=== PATIENT | female | born 1950 ===

== ENCOUNTER 2017-09-26 13:50 | Inpatient (IN) | payer MEDICARE ==
[2017-09-26 13:56] VITALS: BMI 21.7
--- NOTE | 2017-09-26 14:31 | ED PDOC ---
HPI: Psych/Substance Abuse Time Seen by Provider: 09/26/17 14:10 Chief Complaint (Nursing): Psychiatric Evaluation Chief Complaint (Provider): Psychiatric Evaluation History Per: Patient, Family (daughter) History/Exam Limitations: no limitations Current Symptoms Are (Timing): Still Present Additional Complaint(s): 67 year old female, with no history of psychiatric illness, presents to the emergency department via EMS with daughter who states the patient has been demonstrating hoarding for two years and has developed an excessive obsession with her skin. Patient states she saw a pastry wrapper for the sensation of " bugs in her skin," and has since shaved off her eyebrows to help with this. She is worried about having multiple sclerosis, and notes pain in her hands. As per her daughter, patient recently made a declaration of suicidal ideation after a strenuous day last week, but patient claims now that she does not feel that way and has never made any attempts on her life. PMD: Ron Past Medical History Reviewed: Historical Data, Nursing Documentation, Vital Signs Vital Signs: Last Vital Signs Temp 99 F 09/26/17 13:55 Pulse 84 09/26/17 13:55 Resp 16 09/26/17 13:55 BP 145/83 09/26/17 13:55 Pulse Ox 99 09/26/17 13:55 - Medical History PMH: No Chronic Diseases - Surgical History Surgical History: No Surg Hx - Family History Family History: States: Unknown Family Hx - Social History Current smoker - smoking cessation education provided: No Alcohol: None Drugs: Denies - Home Medications Home Medications: Ambulatory Orders Medication Instructions Recorded No Known Home Med 09/26/17 - Allergies Allergies/Adverse Reactions: Allergies Allergy/AdvReac Type Severity Reaction Status Date / Time seasonal Allergy ITCHING Uncoded 09/26/17 14:03 Review of Systems ROS Statement: Except As Marked, All Systems Reviewed And Found Negative Musculoskeletal: Positive for: Hand Pain (bilteral) Skin: Positive for: Other (sensation of bugs in skin, itchy) Psych: Positive for: Suicidal ideation (made last week, but currently denies) Physical Exam - Reviewed Nursing Documentation Reviewed: Yes Vital Signs Reviewed: Yes - Physical Exam Appears: Positive for: Non-toxic, No Acute Distress Head Exam: Positive for: ATRAUMATIC, NORMOCEPHALIC Skin: Positive for: Rash (multiple small lesions along face; eczema to exterior popiteal fossa bilaterally) Eye Exam: Positive for: Normal appearance, EOMI, PERRL ENT: Positive for: Normal ENT Inspection Neck: Positive for: Normal, Painless ROM, Supple Cardiovascular/Chest: Positive for: Regular Rate, Rhythm. Negative for: Murmur Respiratory: Positive for: Normal Breath Sounds. Negative for: Accessory Muscle Use, Respiratory Distress Gastrointestinal/Abdominal: Positive for: Normal Exam, Soft. Negative for: Tenderness Back: Positive for: Normal Inspection Extremity: Positive for: Normal ROM Neurologic/Psych: Positive for: Alert, Oriented - Laboratory Results Result Diagrams: 09/26/17 14:30 09/26/17 14:30 - ECG ECG Rhythm: Positive for: Sinus Rhythm (nsr 70 bpm no ectopy no acute changes) O2 Sat by Pulse Oximetry: 99 (RA) Pulse Ox Interpretation: Normal - Progress ED Course And Treament: seen by crisis Admitted to [facility] Diagnosis depression Medical Decision Making Medical Decision Making: Time: 14:12 Initial Impression: psych eval Initial Plan: --CT Head --EKG --Alcohol Serum --CMP --Drug Screen --TSH --CBC with differential --Chest Portable XR --Urinalysis Time:14:48 Chest XR FINDINGS: LUNGS: No active pulmonary disease. PLEURA: No significant pleural effusion identified, no pneumothorax apparent. CARDIOVASCULAR: Normal. OSSEOUS STRUCTURES: Degenerative changes. VISUALIZED UPPER ABDOMEN: Normal. OTHER FINDINGS: None. IMPRESSION: No active disease. Time: 17:[address] FINDINGS: HEMORRHAGE: No intracranial hemorrhage. BRAIN: No mass effect or edema. No atrophy or chronic microvascular ischemic changes. VENTRICLES: Unremarkable. No hydrocephalus. CALVARIUM: Unremarkable. PARANASAL SINUSES: Minimal chronic ethmoid sinusitis. MASTOID AIR CELLS: Unremarkable as visualized. No inflammatory changes. OTHER FINDINGS: None. IMPRESSION: No intracranial mass, hemorrhage or evidence of acute infarct. Minimal chronic ethmoid sinusitis. Scribe Attestation: Documented by Lauren Campuzano, acting as a scribe for Chalino Tyler PA-C Provider Scribe Attestation: All medical record entries made by the Scribe were at my direction and personally dictated by me. I have reviewed the chart and agree that the record accurately reflects my personal performance of the history, physical exam, medical decision making, and the department course for this patient. I have also personally directed, reviewed, and agree with the discharge instructions and disposition. Disposition - Clinical Impression Clinical Impression: Depression - Patient ED Disposition Is Patient to be Admitted: Yes - Disposition Disposition Time: 19:39 Condition: FAIR - Pt Status Changed To: Hospital Disposition Of: Inpatient - Admit Certification Admit to Inpatient:: After my assessment, the patient will require hospitalization for at least two midnights. This is because of the severity of symptoms shown, intensity of services needed, and/or the medical risk in this patient being treated as an outpatient.
[2017-09-26 14:34] LABS: BASO % 0.4 % (0.0-2.0); EOS # 0.1 K/uL (0.0-0.7); EOS % 2.8 % (0.0-4.0); HEMOGLOBIN 12.7 g/dL (12.0-16.0); LYMPH # 1.6 K/uL (1.0-4.3); MEAN CELL VOLUME 105.4 fl (81.0-99.0); MEAN CORPUSCULAR HEMOGLOBIN 35.7 pg (27.0-31.0); MEAN CORPUSCULAR HGB CONC 33.8 g/dL (33.0-37.0); MEAN PLATELET VOLUME 8.3 fl (7.2-11.7); MONO # 0.3 K/uL (0.0-0.8); MONO % 5.5 % (0.0-10.0); NEUT % 59.3 % (50.0-75.0); NRBC % 0.1 % (0.0-0.0); RBC 3.56 Mil/uL (3.80-5.20); RED CELL DISTRIBUTION WIDTH 18.2 % (11.5-14.5)
[2017-09-26 14:44] LABS: ALB/GLOB RATIO 1.4 (1.0-2.1); ALBUMIN 4.1 g/dL (3.5-5.0); ALT/SGPT 35 U/L (9-52); AST/SGOT 26 U/L (14-36); BLOOD UREA NITROGEN 16 mg/dl (7-17); GFR AFRICAN-AMERICAN > 60; GFR NON-AFRICAN AMERICAN > 60
--- NOTE | 2017-09-26 14:50 | RAD ---
HISTORY: routine COMPARISON: No prior. FINDINGS: LUNGS: No active pulmonary disease. PLEURA: No significant pleural effusion identified, no pneumothorax apparent. CARDIOVASCULAR: Normal. OSSEOUS STRUCTURES: Degenerative changes. VISUALIZED UPPER ABDOMEN: Normal. OTHER FINDINGS: None. IMPRESSION: No active disease.
[2017-09-26 14:58] LABS: URINE BILIRUBIN NEGATIVE (NEGATIVE); URINE BLOOD NEGATIVE (NEGATIVE); URINE CLARITY CLEAR (Clear); URINE COLOR YELLOW (YELLOW); URINE GLUCOSE (UA) NEG (Normal); URINE LEUKOCYTE ESTERASE TRACE Leu/uL (Negative); URINE PROTEIN NEGATIVE (NEGATIVE); URINE UROBILINOGEN 0.2-1.0 mg/dL (0.2-1.0)
[2017-09-26 15:07] LABS: BARBITURATES, UR NEGATIVE (NEGATIVE); BENZODIAZEPINES, UR NEGATIVE (NEGATIVE); OPIATES, UR NEGATIVE (NEGATIVE); PHENCYCLIDINE, UR NEGATIVE (NEGATIVE)
--- NOTE | 2017-09-26 17:01 | CT ---
PROCEDURE: CT HEAD WITHOUT CONTRAST. HISTORY: altered mentation COMPARISON: None available. TECHNIQUE: Axial computed tomography images were obtained through the head/brain without intravenous contrast. Radiation dose: Total exam DLP = 643.76 mGy-cm. This CT exam was performed using one or more of the following dose reduction techniques: Automated exposure control, adjustment of the mA and/or kV according to patient size, and/or use of iterative reconstruction technique. FINDINGS: HEMORRHAGE: No intracranial hemorrhage. BRAIN: No mass effect or edema. No atrophy or chronic microvascular ischemic changes. VENTRICLES: Unremarkable. No hydrocephalus. CALVARIUM: Unremarkable. PARANASAL SINUSES: Minimal chronic ethmoid sinusitis. MASTOID AIR CELLS: Unremarkable as visualized. No inflammatory changes. OTHER FINDINGS: None. IMPRESSION: No intracranial mass, hemorrhage or evidence of acute infarct. Minimal chronic ethmoid sinusitis.
[2017-09-26 20:13] VITALS: O2SAT 99
[2017-09-26] MEDS ORDERED: Bismuth Subsalicylate 262 mg/15 ml Sus (240 ml) PO PRN (20:38)
[2017-09-26] MEDS ORDERED: Alum-Mag Hydrox-Simethicone Susp (30 mL) PO PRN (20:38)
--- NOTE | 2017-09-26 21:45 | PCM.BM ---
<Ariadne Villalobos - Last Filed: 09/26/17 21:43> Treatment Plan Problems - Problems identified on initial assessmt Tactile hallucination Date Initiated: 09/26/17 Time Initiated: 21:43 Assessment reference: NA Status: Active Treatment assets and liabiliti Patient Assests: ADL independent, good support system, negotiates basic needs, cognitively intact Patient Liabilities: medical problems - Milieu Protocol Maintain good personal hygiene: daily Encourage regular showers, daily Remind patient to perform daily oral care, other Assist patient to perform ADL's (prn) Conduct patient checks and document Observation sheet: Q15 minutes Maintain personal safety: every shift Educate patient to report safety concerns to staff, every shift Monitor environment for contraband/sharps Medication safety: Monitor for expected outcome, potential side effects: every shift, Assess barriers to learning: every shift, Assess readiness for medication education: every shift <Robyn Fiore - Last Filed: 09/29/17 08:23> - Diagnosis (1) Major depressive disorder with psychotic features Status: Acute Interventions: Medication management, Individual and group therapy, Psychoeducation 09/29/17 08:24 (2) Hoarding disorder Status: Acute Interventions: Medication management, Individual and group therapy, Psychoeducation 09/29/17 08:24 <Char Rao - Last Filed: 09/30/17 12:49> Family Contact Family contact: Patient agrees to contact, Family has been contacted by patient , Telephone contact initiated by staff Family contact name: Vickie (daughter), Leander (son) and Giuliano (spouse) Family contacted how many times per week?: 2 Family contact comment: Please refer to SW progress note dated 09/30/2017 for collateral information. - Goals for Treatment Patient goals for treatment: Pt to be encouraged to attend activity and clinical groups 3-5x per week to decrease symptoms of paranoia, delusions and employ reality testing. Pt to be encouraged to participate in group milieu to develop coping skills to reduce psychiatric hospitalizations and further decompensation. Coordinate discharge resources needs by providing referral for psychiatric treatment follow up in the community. Discharge/Continuing Care - Education Needs Education Needs: Family Medication, Family Diagnosis/Disease Process, Family Coping Skills, Family Placement options, Family Community resources, Family Personal Hygiene/Grooming, Family Aftercare Safety Plan, Patient Medication, Patient Diagnosis/Disease Process, Patient Coping Skills, Patient Placement options, Patient Community resources, Patient Personal Hygiene/Grooming, Patient Aftercare Safety Plan - Discharge Discharge Criteria: Tolerates medication w/o severe side effects, Free of paranoid thoughts, Free of agitation, Normal sleep pattern, Ability to care for self, Reduction of target symptoms Discharge to:: Home, With Family - Additional Comments 09/30/17 12:44 Pt seen and discussed in team meeting. Reason for admission reviewed and discussed. Pt minimizing psychiatric issues and contributing it to a "skin problem" and a "neurological problem." Pt requesting to be seen by a neurologist. Pt reported she sought tx with a psych nurse in the past but reported she had no skin problem. Pt requesting to be discharged. Pt provided with psycho-education regarding her current symptoms and prescribed medications. Pt refusing to take her Lexapro an Risperdal. Attending MD reviewed symptoms and provided pt with feedback regarding purpose and need for medication. Pt still refusing to comply with prescribed medication. 48 hour notice of intent to leave explained to pt. Pt verbalized that she still would like to sign it. Tx plan reviewed with pt. Pt's social and medical issues reviewed. Pt signed consent for bid writer to speak to family. SW to continue to follow case. - Treatment Team Participation Discussed with Family/SO: Yes (Via telephone with daughter, Vickie) Was Patient/Family/SO present at Treatment Team Meeting: Yes
[2017-09-27] MEDS: Magnesium Hydroxide Susp 30 ml UD PO PRN (04:36)
[2017-09-27 08:27] LABS: HDL CHOLESTEROL 49 MG/DL (30-70)
[2017-09-27 08:31] LABS: IRON 144 ug/dL (37-170)
[2017-09-27 08:39] LABS: LDL CHOLESTEROL 113 mg/dL (0-129)
[2017-09-27 08:40] LABS: % IRON SATURATION 40 % (20-55); TOTAL IRON BINDING CAPACITY 358 ug/dL (250-450)
[2017-09-27 08:46] LABS: T4 7.58 ug/dl (5.5-11.0)
[2017-09-27 08:59] LABS: T3 1.05 nmol/L (1.49-2.60)
[2017-09-27 09:03] LABS: FERRITIN 60.2 ng/Ml (11.1-264.0)
--- NOTE | 2017-09-27 10:57 | CARD ---
APPROVED REPORT EKG Measurement Heart [id number] <Conclusion> Normal sinus rhythm Nonspecific ST abnormality Abnormal ECG
--- NOTE | 2017-09-27 13:11 | PCM.PSYCH ---
Initial Psychiatric Evaluation - Initial Psychiatric Evaluation Legal Status: Capacity Chief Complaint (in patient's own words): life gets hard sometimes Patient's Reaction to Hospitalization: pt ambivalent about getting help History of Present Illness and Precipitating Events: pt is 67 ys old female without previous formal psychiatric diagnosis or treatment , as per family pt has been always suffering from depression, however for the past few months noted to be more depressed, isolating herself, tearful, irritable,pt has been also exhibiting disorganized behavior, dressing in odd pattern hoarding behavior . refusing help to clean and becoming irritable if they offer to help help her, delusions of parasitosis, believing she has parasites in her skin and continuously picking on her skin on day of evaluation pt was tearful, angry irritable and expressed suicidal ideation stating she would rather not be alive, mobile crisis was called and pt was brought to ER Current Medications: Active Medications Generic Name Dose Route Start Last Admin Trade Name Freq PRN Reason Stop Dose Admin Acetaminophen 650 mg 09/26/17 20:38 Tylenol 325mg Tab PO Q4 PRN Pain, moderate (4-7) Al Hydrox/Mg Hydrox/Simethicone 30 ml 09/26/17 20:38 Maalox Plus 30 Ml PO Q4 PRN Dyspepsia Bismuth Subsalicylate 524 mg 09/26/17 20:38 Pepto-Bismol PO Q4 PRN Diarrhea Cyanocobalamin 1,000 mcg 09/27/17 09:30 Vitamin B12 1000 Mcg Tab PO DAILY NIURKA Lorazepam 0.5 mg 09/26/17 20:38 Ativan PO 10/10/17 20:39 HS PRN Insomnia Lorazepam 0.5 mg 09/26/17 20:38 Ativan PO 10/10/17 20:39 Q6 PRN Anixety/Agitation Magnesium Hydroxide 30 ml 09/26/17 20:38 09/27/17 04:36 Milk Of Magnesia PO 30 ml HS PRN Administration Constipation Trazodone HCl 50 mg 09/26/17 20:41 Desyrel PO HS PRN Insomnia Past Psychiatric History - Past Psychiatric History Explanation of prior treatment: hx of depression, no previous hospitalization or treatment History of ETOH/Drug Use: non reported Pertinent Medical Hx (Current Medical&Sleep Prob, Allergies): Allergies Allergy/AdvReac Type Severity Reaction Status Date / Time seasonal Allergy ITCHING Uncoded 09/26/17 14:03 No Known Home Med 09/26/17 Mental Status Examination - Personal Presentation Personal Presentation: Looks older than stated age - Affect Affect: Constricted, Depressed - Motor Activity Motor Activity: Psychomotor Agitation - Reliability in Providing Information Reliability in Providing Information: Poor, due to alteration in thoughts, Poor , due to altered mood - Speech Speech: Tangential - Mood Mood: Depressed, Anxious - Formal Thought Process Formal Thought Process: Delusions Additional comments: delusions of parasitosis - Obsessions/Compulsions Obsessions: No Compulsions: No - Cognitive Functions Orientation: Person, Place Judgement: Imparied, as evidence by: Poor judgement, Imparied, as evidence by: Lack of insight into illness - Risk Risk: Diminished functioning - Strength & Assets Inventory Strength & Assets Inventory: Family support, Life experience - Limitations Additional comments: limited insight DSM 5 DX - DSM 5 DSM 5 Diagnosis: major depression with psychotic features hoarding disorder - Recommended/Plan of Treatment Treatment Recommendations and Plan of Treatment: start lexapro 5mg daily start risperidone 0.25 mg daily trazdone supportive therapy pt signed 48hour notice requesting discharge will encourage to continue with treatment, possible referral to screening for involuntary admission for continuity of care
--- NOTE | 2017-09-27 14:23 | CP.PCM.CON ---
History of Present Illness - History of Present Illness History of Present Illness: CC: Depression This is a 67 year old female with no significant past medical history presenting to the inpatient [facility] for depression and psychosis. She c /o sensation of neuropathic pain and a sensation of bugs crawling on her skin. She appears acutely anxious. Patient denies chest pain, shortness of breath, fevers, chills, nausea, vomiting, diarrhea, headache. All of the patient's questions were answered at the bedside. Review of Systems - Review of Systems Review of Systems: A 12 point review of systems was conducted and found to be negative other than in HPI. Past Patient History - Infectious Disease Hx of Infectious Diseases: None - Past Social History Smoking Status: Never Smoked Alcohol: None Drugs: Denies - CARDIAC Hx Cardiac Disorders: No Hx Hypertension: No - PULMONARY Hx Tuberculosis: No - NEUROLOGICAL HX Cerebrovascular Accident: No Hx Seizures: No - HEENT Hx Glaucoma: Yes - HEMATOLOGICAL/ONCOLOGICAL Hx Cancer: No Hx Human Immunodeficiency Virus (HIV): No - INTEGUMENTARY Hx Eczema: Yes - MUSCULOSKELETAL/RHEUMATOLOGICAL Hx Arthritis: Yes Hx Falls: No Hx Osteoporosis: Yes - GENITOURINARY/GYNECOLOGICAL Hx Sexually Transmitted Disorders: No - PSYCHIATRIC Hx Substance Use: No Meds Allergies/Adverse Reactions: Allergies Allergy/AdvReac Type Severity Reaction Status Date / Time seasonal Allergy ITCHING Uncoded 09/26/17 14:03 - Medications Medications: Current Medications Acetaminophen (Tylenol 325mg Tab) 650 mg PO Q4 PRN PRN Reason: Pain, moderate (4-7) Al Hydrox/Mg Hydrox/Simethicone (Maalox Plus 30 Ml) 30 ml PO Q4 PRN PRN Reason: Dyspepsia Bismuth Subsalicylate (Pepto-Bismol) 524 mg PO Q4 PRN PRN Reason: Diarrhea Lorazepam (Ativan) 0.5 mg PO HS PRN PRN Reason: Insomnia Stop: 10/10/17 20:39 Lorazepam (Ativan) 0.5 mg PO Q6 PRN PRN Reason: Anixety/Agitation Stop: 10/10/17 20:39 Magnesium Hydroxide (Milk Of Magnesia) 30 ml PO HS PRN PRN Reason: Constipation Last Admin: 09/27/17 04:36 Dose: 30 ml Trazodone HCl (Desyrel) 50 mg PO HS PRN PRN Reason: Insomnia Physical Exam - Additional Findings Additional findings: Physical exam: Constitutional- cooperative, awake, alert Head- NCAT, PERRL Eye- PERRL, EOMI ENT- normal exam, MMM. Neck- normal inspection, supple, no JVD Respiratory- CTAB, no wheezes rales rhonchi Cardiovascular- RRR, +S1, +S2 no MRG GI/Abdominal- normal bowel sounds, soft, no mass, no hsm Skin- warm, dry Extremities Exam- normal capillary refill, normal inspection Neurological Exam- alert, awake, oriented Psych- appears anxious, bizarre affect Results - Vital Signs Recent Vital Signs: Last Vital Signs Temp 98.1 F 09/26/17 20:23 Pulse 81 09/26/17 20:23 Resp 19 09/26/17 20:27 BP 135/80 09/26/17 20:23 Pulse Ox 99 09/26/17 22:11 - Labs Result Diagrams: 09/26/17 14:30 09/26/17 14:30 Labs: Laboratory Results - last 24 hr 09/26/17 09/26/17 09/26/17 14:30 14:30 14:42 WBC 5.0 RBC 3.56 L Hgb 12.7 Hct 37.5 MCV 105.4 H MCH 35.7 H MCHC 33.8 RDW 18.2 H Plt Count 223 MPV 8.3 Neut % (Auto) 59.3 Lymph % (Auto) 32.0 [place] % (Auto) 5.5 Eos % (Auto) 2.8 Baso % (Auto) 0.4 Neut # (Auto) 3.0 Lymph # (Auto) 1.6 [place] # (Auto) 0.3 Eos # (Auto) 0.1 Baso # (Auto) 0.0 Sodium 139 Potassium 3.9 Chloride 101 Carbon Dioxide 25 Anion Gap 17 BUN 16 Creatinine 0.7 Est GFR ( Amer) > 60 Est GFR (Non-Af Amer) > 60 Random Glucose 89 Calcium 9.0 Iron TIBC % Saturation Ferritin Total Bilirubin 0.5 AST 26 ALT 35 Alkaline Phosphatase 80 Total Protein 7.1 Albumin 4.1 Globulin 3.0 Albumin/Globulin Ratio 1.4 Triglycerides Cholesterol LDL Cholesterol Direct HDL Cholesterol Vitamin B12 Free T4 Thyroxine (T4) Total T3 TSH 3rd Generation 6.67 H Urine Color Urine Clarity Urine pH Ur Specific [place] Urine Protein Urine Glucose (UA) Urine Ketones Urine Blood Urine Nitrate Urine Bilirubin Urine Urobilinogen Ur Leukocyte Esterase Urine RBC (Auto) Urine Microscopic WBC Urine Opiates Screen Negative Urine Methadone Screen Negative Ur Barbiturates Screen Negative Ur Phencyclidine Scrn Negative Ur Amphetamines Screen Negative U Benzodiazepines Scrn Negative U Oth Cocaine Metabols Negative U Cannabinoids Screen Negative Alcohol, Quantitative < 10 09/26/17 09/27/17 09/27/17 14:42 06:51 06:51 WBC RBC Hgb Hct MCV MCH MCHC RDW Plt Count MPV Neut % (Auto) Lymph % (Auto) [place] % (Auto) Eos % (Auto) Baso % (Auto) Neut # (Auto) Lymph # (Auto) [place] # (Auto) Eos # (Auto) Baso # (Auto) Sodium Potassium Chloride Carbon Dioxide Anion Gap BUN Creatinine Est GFR ( Amer) Est GFR (Non-Af Amer) Random Glucose Calcium Iron 144 TIBC 358 % Saturation 40 Ferritin 60.2 Total Bilirubin AST ALT Alkaline Phosphatase Total Protein Albumin Globulin Albumin/Globulin Ratio Triglycerides 118 Cholesterol 210 H LDL Cholesterol Direct 113 HDL Cholesterol 49 Vitamin B12 < 159 L Free T4 Thyroxine (T4) 7.58 Total T3 1.05 L TSH 3rd Generation Urine Color Yellow Urine Clarity Clear Urine pH 7.0 Ur Specific [place] 1.023 Urine Protein Negative Urine Glucose (UA) Neg Urine Ketones Trace Urine Blood Negative Urine Nitrate Negative Urine Bilirubin Negative Urine Urobilinogen 0.2-1.0 Ur Leukocyte Esterase Trace Urine RBC (Auto) 6 H Urine Microscopic WBC 2 Urine Opiates Screen Urine Methadone Screen Ur Barbiturates Screen Ur Phencyclidine Scrn Ur Amphetamines Screen U Benzodiazepines Scrn U Oth Cocaine Metabols U Cannabinoids Screen Alcohol, Quantitative 09/27/17 06:51 WBC RBC Hgb Hct MCV MCH MCHC RDW Plt Count MPV Neut % (Auto) Lymph % (Auto) [place] % (Auto) Eos % (Auto) Baso % (Auto) Neut # (Auto) Lymph # (Auto) [place] # (Auto) Eos # (Auto) Baso # (Auto) Sodium Potassium Chloride Carbon Dioxide Anion Gap BUN Creatinine Est GFR ( Amer) Est GFR (Non-Af Amer) Random Glucose Calcium Iron TIBC % Saturation Ferritin Total Bilirubin AST ALT Alkaline Phosphatase Total Protein Albumin Globulin Albumin/Globulin Ratio Triglycerides Cholesterol LDL Cholesterol Direct HDL Cholesterol Vitamin B12 Free T4 0.88 Thyroxine (T4) Total T3 TSH 3rd Generation Urine Color Urine Clarity Urine pH Ur Specific [place] Urine Protein Urine Glucose (UA) Urine Ketones Urine Blood Urine Nitrate Urine Bilirubin Urine Urobilinogen Ur Leukocyte Esterase Urine RBC (Auto) Urine Microscopic WBC Urine Opiates Screen Urine Methadone Screen Ur Barbiturates Screen Ur Phencyclidine Scrn Ur Amphetamines Screen U Benzodiazepines Scrn U Oth Cocaine Metabols U Cannabinoids Screen Alcohol, Quantitative Assessment & Plan - Assessment and Plan (Free Text) Plan: ASSESSMENT/PLAN This is a 67 year old female with no significant past medical history presenting to the inpatient psychiatric [facility] for depression and psychosis. 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
--- NOTE | 2017-09-28 14:22 | PCM.PYCHPN ---
Psychiatric Progress Note - Psychiatric Progress Note Patient seen today, length of contact: pt evaluated discussed with team chart reviewed Patient Chief Complaint: I feel better but I still have these bugs in my skin Problems Identified/Issues Discussed: pt on evaluation , presenting with calmer mood and affect, more cooperative and interactive with undersigned, stating feeling less anxious, no current side effects of the medications, pt presenting with limited insight into illness , continues to have the delusions of the bugs embedded in her skin, with possible tactile hallucinations, pt requesting to be seen by neurologist,discussed following up with hospitalist for neurology consult when discussed with pt hoarding problems, denied and stated that her children are over protective denied command hallucinations, denied suicidal ideation , no reported side effects of medications Medical Problems: hx of depression, no previous hospitalization or treatment DSM 5 Symptoms Update: major depression delusional parasitosis hoarding disorder Medication Change: Yes (increase risperidone) Medical Record Reviewed: Yes Mental Status Examination - Cognitive Function Orientation: Person, Place Attention: WNL Concentration: WNL Association: WNL Fund of Knowledge: Poor Decription of patient's judgement and insights: poor insight and judgment - Mood Mood: Depressed, Anxious - Affect Affect: Constricted, Depressed - Speech Speech: Soft, Pressured - Formal Thought Process Formal Thought Process: Hallucinations, Delusions Psychotic Thoughts and Behaviors: delusions of parasitosis, tactile hallucinations - Suicidal Ideation Suicidal Ideation: No - Homicidal Ideation Homicidal Ideation: No Goal/Treatment Plan - Goal/Treatment Plan Need for Continued Stay: Severe depression anxiety, Discharge may exacerbated symptoms Progress Toward Problem(s) and Goals/Treatment Plan: lexapro 5mg daily increase risperidone 0.25 mg daily and 0.25 mg qhs trazdone 50qhs prn for insomnia supportive therapy
[2017-09-29] MEDS: Magnesium Hydroxide Susp 30 ml UD PO PRN (04:24)
--- NOTE | 2017-09-29 07:52 | PCM.PYCHPN ---
Psychiatric Progress Note - Psychiatric Progress Note Patient seen today, length of contact: Patient evaluated, case discussed with team, chart reviewed Patient Chief Complaint: "I'm having tingling and pain." Problems Identified/Issues Discussed: Patient requested to have the timing of the Risperdal changed, stating that she does not like to take medications at multiple times. She denies adverse effects to medications. She continues to report b/l arm/leg tingling, throbbing and pain and is uncertain if it is caused by bugs or something crawling on her. She reports feeling acutely anxious and preoccupied with her health. Medication Change: Yes (Change timing of Risperdal) Medical Record Reviewed: Yes Consults ordered or reviewed: Medicine consult, Neurology consult Mental Status Examination - Cognitive Function Orientation: Person, Place, Situation Attention: WNL Concentration: WNL Association: WNL Fund of Knowledge: Poor - Mood Mood: Depressed, Anxious - Affect Affect: Constricted, Depressed - Speech Speech: Soft - Formal Thought Process Formal Thought Process: Hallucinations, Delusions Psychotic Thoughts and Behaviors: +Tactile hallucinations - Suicidal Ideation Suicidal Ideation: No - Homicidal Ideation Homicidal Ideation: No Goal/Treatment Plan - Goal/Treatment Plan Need for Continued Stay: Severe depression anxiety, Discharge may exacerbated symptoms Progress Toward Problem(s) and Goals/Treatment Plan: Major Depressive Disorder w/ psychotic features; Hoarding Disorder -Continue Lexapro 5 mg PO Daily; will titrate as clinically indicated -Change Risperdal to 0.5 mg PO Daily -Medicine consult -Neurology consult -Individual and group therapy -Disposition planning -Psychoeducation -Obtain collateral history Estimated Date of D/C: 10/03/17
[2017-09-29] MEDS: Multivitamin With Minerals Tab PO SCH (09:02)
[2017-09-29 12:27] LABS: FOLATE 15.4 ng/mL
[2017-09-30] MEDS: Multivitamin With Minerals Tab PO SCH (08:38)
--- NOTE | 2017-09-30 09:25 | PCM.PYCHPN ---
Psychiatric Progress Note - Psychiatric Progress Note Patient seen today, length of contact: Patient evaluated, case discussed with team, chart reviewed Patient Chief Complaint: "Something is wrong with my skin." Problems Identified/Issues Discussed: Patient is requesting to be discharged from the hospital. She continues to report that she believes something is wrong with her skin, such a electricity running through her or some sort of creatures on her. She denies AH/VH/SI/HI. She is refusing to take all psychotropic medications because she does not feel that she needs them. Psychoeducation provided that her sensations are likely delusional. Medication Change: No Medical Record Reviewed: Yes Consults ordered or reviewed: Medicine consult, Neurology consult Mental Status Examination - Cognitive Function Orientation: Person, Place, Situation, Time Memory: Intact Attention: WNL Concentration: WNL Association: WNL Fund of Knowledge: [facility] Decription of patient's judgement and insights: Poor I/J - Mood Mood: Anxious - Affect Affect: Constricted - Speech Speech: Soft - Formal Thought Process Formal Thought Process: Hallucinations, Delusions Psychotic Thoughts and Behaviors: +Tactile hallucinations - Suicidal Ideation Suicidal Ideation: No - Homicidal Ideation Homicidal Ideation: No Goal/Treatment Plan - Goal/Treatment Plan Need for Continued Stay: Discharge may exacerbated symptoms Progress Toward Problem(s) and Goals/Treatment Plan: Major Depressive Disorder w/ psychotic features; Hoarding Disorder; Patient is currently refusing all psychiatric treatment and submitted a 48 hour letter requesting discharge. She does not meet criteria for involuntary commitment at this time, so she will likely be discharged to home tomorrow. -SW to obtain collateral history from family -Patient refusing all psychotropic medications at this time -Medicine consult appreciated -Neurology consult ordered -Individual and group therapy -Disposition planning -Psychoeducation Estimated Date of D/C: 10/01/17
[2017-10-01] MEDS: Magnesium Hydroxide Susp 30 ml UD PO PRN (06:00)
[2017-10-01] MEDS: Multivitamin With Minerals Tab PO SCH ×2 (08:59→09:01)
--- NOTE | 2017-10-01 11:18 | PCM.PYCHPN ---
Psychiatric Progress Note - Psychiatric Progress Note Patient seen today, length of contact: Patient evaluated, case discussed with team, chart reviewed Patient Chief Complaint: "Something is wrong with my skin." Problems Identified/Issues Discussed: Patient was screened by [facility] and found to not meet criteria for involuntary commitment. She continues to report that she believes something is wrong with her skin, such a electricity running through her or some sort of creatures on her. She denies AH/VH/SI/HI. She continues to refuse all psychotropic medications because she does not feel that she needs them. Psychoeducation provided that her sensations are likely delusional. She is agreeable to staying until tomorrow to complete neurology consult and get the recommended MRI. Medication Change: No Medical Record Reviewed: Yes Consults ordered or reviewed: Medicine consult, Neurology consult Mental Status Examination - Cognitive Function Orientation: Person, Place, Situation, Time Memory: Intact Attention: WNL Concentration: WNL Association: [facility] Fund of Knowledge: [facility] Decription of patient's judgement and insights: Poor I/J - Mood Mood: Anxious - Affect Affect: Constricted - Speech Speech: Soft - Formal Thought Process Formal Thought Process: Hallucinations, Delusions Psychotic Thoughts and Behaviors: +Tactile hallucinations - Suicidal Ideation Suicidal Ideation: No - Homicidal Ideation Homicidal Ideation: No Goal/Treatment Plan - Goal/Treatment Plan Need for Continued Stay: Discharge may exacerbated symptoms Progress Toward Problem(s) and Goals/Treatment Plan: Major Depressive Disorder w/ psychotic features; Hoarding Disorder; Patient not accepted for involuntary commitment. She continues to refuse all psychotropic medications but is agreeable to staying in the hospital until tomorrow to complete neurology evaluation and get MRI. -Patient refusing all psychotropic medications at this time (offered Lexapro and Risperdal) -Medicine consult appreciated -Neurology consult -Individual and group therapy -Disposition planning -Psychoeducation -SW discussed case w/ family Estimated Date of D/C: 10/02/17
--- NOTE | 2017-10-01 18:38 | MRI ---
PROCEDURE: MRI of the cervical spine dated 10/01/2017 HISTORY: Paresthesias of the upper extremities COMPARISON: No prior study available comparison. TECHNIQUE: Multiecho multiplanar sequences were performed through the cervical spine without the use of intravenous contrast. Note that the examination is limited by motion artifact. FINDINGS: The current study reveals no acute compression fractures no retropulsed fragments. Vertebral bodies exhibit normal stature. There is minimal reversal of the normal mid cervical lordosis however vertebral bodies otherwise exhibit normal alignment. Facets normally aligned. Multilevel degenerative spondylosis is present. . Questionable calcification of the posterior longitudinal ligament (OPLL) extending from the C4-C5 through the C6-C7 level. C2-C3: There is disc desiccation however disc space height relatively maintained. Minimal bulge of the posterior annulus results in some flattening of the ventral surface of the thecal sac however the overall central canal is adequate. The facet joints are mildly hypertrophic right greater than left. Exit foramina adequate. C3-C4: There is mild disc desiccation. Disc space height relatively maintained. Minimal bulge of the posterior annulus present. There is minor degenerative squaring of the uncovertebral joints. Facets also hypertrophic right greater than left. Central canal appears adequate. Exit foramina are stenotic bilaterally. C4-C5: There is disc desiccation and disc space narrowing. Small asymmetric disc ridge complex larger on the left than right contiguous with hypertrophic uncovertebral joints. The facets also quite hypertrophic on the left and mildly hypertrophic on the right. Changes result in [id number] canal stenosis and cord compression. The exit foramina are stenotic bilaterally left greater than right. C5-C6: There is disc desiccation and disc space narrowing. Small broad-based disc ridge complex contiguous with hypertrophic uncovertebral joints. Facets also hypertrophic. Changes result in moderate central canal stenosis and cord compression as well as bilateral foraminal stenosis. C6-C7: Disc desiccation and disc space narrowing. No disc herniation however there appears to be some calcification of the posterior longitudinal ligament that extends inferiorly from the C4-C5 level to the level of the C6-C7 disc space which results a mild canal compromise and cord compression of. Exit foramina appear stenotic due to overgrown uncovertebral joints and facets at this level as well. C7-T1: No disc herniation, spinal canal stenosis or neural foraminal narrowing. OTHER FINDINGS: Evaluation for signal changes within the cord limited due to at aforementioned motion artifact. IMPRESSION: Limited motion degraded study. Questionable calcification of the posterior longitudinal ligament (OPLL) extending from the C4-C5 through the C6-C7 level. Multilevel degenerative spondylosis, most notably affecting the C4-C5 through the C6-C7 levels as detailed above.
--- NOTE | 2017-10-01 19:55 | CP.PCM.CON ---
History of Present Illness - History of Present Illness History of Present Illness: Mrs. Enriquez is a 67-year-old woman who is currently admitted to [facility] for depression, psychosis and complains of bilateral upper extremity tingling, shooting pain and burning. MRI of the cervical spine was done and showed C4/5 mild to moderate spinal stenosis and foraminal stenosis. Review of Systems - Review of Systems All systems: reviewed and no additional remarkable complaints except Past Patient History - Infectious Disease Hx of Infectious Diseases: None - Past Social History Smoking Status: Never Smoked Alcohol: None Drugs: Denies - CARDIAC Hx Cardiac Disorders: No Hx Hypertension: No - PULMONARY Hx Tuberculosis: No - NEUROLOGICAL HX Cerebrovascular Accident: No Hx Seizures: No - HEENT Hx Glaucoma: Yes - HEMATOLOGICAL/ONCOLOGICAL Hx Cancer: No Hx Human Immunodeficiency Virus (HIV): No - INTEGUMENTARY Hx Eczema: Yes - MUSCULOSKELETAL/RHEUMATOLOGICAL Hx Arthritis: Yes Hx Falls: No Hx Osteoporosis: Yes - GENITOURINARY/GYNECOLOGICAL Hx Sexually Transmitted Disorders: No - PSYCHIATRIC Hx Substance Use: No Meds Allergies/Adverse Reactions: Allergies Allergy/AdvReac Type Severity Reaction Status Date / Time seasonal Allergy ITCHING Uncoded 09/26/17 14:03 - Medications Medications: Current Medications Acetaminophen (Tylenol 325mg Tab) 650 mg PO Q4 PRN PRN Reason: Pain, moderate (4-7) Al Hydrox/Mg Hydrox/Simethicone (Maalox Plus 30 Ml) 30 ml PO Q4 PRN PRN Reason: Dyspepsia Bismuth Subsalicylate (Pepto-Bismol) 524 mg PO Q4 PRN PRN Reason: Diarrhea Cyanocobalamin (Vitamin B12 1000 Mcg Tab) 1,000 mcg PO DAILY [facility] Last Admin: 10/01/17 09:01 Dose: Not Given Escitalopram Oxalate (Lexapro) 5 mg PO DAILY [facility] Last Admin: 10/01/17 09:00 Dose: Not Given Gabapentin (Neurontin) 300 mg PO BID [facility] Lorazepam (Ativan) 0.5 mg PO HS PRN PRN Reason: Insomnia Stop: 10/10/17 20:39 Lorazepam (Ativan) 0.5 mg PO Q6 PRN PRN Reason: Anixety/Agitation Stop: 10/10/17 20:39 Magnesium Hydroxide (Milk Of Magnesia) 30 ml PO HS PRN PRN Reason: Constipation Last Admin: 10/01/17 06:00 Dose: 30 ml Multivitamins/Minerals (Therapeutic-M Tab) 1 tab PO DAILY [facility] Last Admin: 10/01/17 09:01 Dose: Not Given Risperidone (Risperdal Tab) 0.5 mg PO DAILY [facility] Last Admin: 10/01/17 09:01 Dose: Not Given Physical Exam - Neurological Exam Neurological exam: Alert, CN II-XII Intact, Normal Gait, Oriented x3, Reflexes Normal Results - Vital Signs Recent Vital Signs: Last Vital Signs Temp 97.1 F L 10/01/17 15:32 Pulse 86 10/01/17 15:32 Resp 19 10/01/17 15:32 BP 144/77 10/01/17 15:32 Pulse Ox 99 09/26/17 22:11 - Labs Result Diagrams: 09/26/17 14:30 09/26/17 14:30 Assessment & Plan (1) Radiculopathy affecting upper extremity Assessment and Plan: Will start neurontin 300 mg BID and recommend physical therapy. Continue supportive care and follow up with outpatient. THank you. Status: Acute Priority: High
--- NOTE | 2017-10-02 08:29 | PCM.PYCHDC ---
Mental Status Examination - Mental Status Examination Orientation: Person, Place, Situation, Time Memory: Intact Mood: Neutral Affect: Broad Speech: Appropriate Attention: WNL Concentration: WNL Association: WNL Fund of Knowledge: WNL Formal Thought Process: Delusions (Misinterprets neuropathy, believes she has electricity in her skin or creatures crawling on her) Description of patient's judgement and insight: Poor I/ Fair J Psychotic Thoughts and Behaviors: +Delusions of electrical current running through her body or creatures crawling on her Suicidal Ideation: No Current Homicidal Ideation?: No Discharge Summary - Discharge Note Reason for Hospitalization: As per initial HPI note: pt is 67 ys old female without previous formal psychiatric diagnosis or treatment , as per family pt has been always suffering from depression, however for the past few months noted to be more depressed, isolating herself, tearful, irritable,pt has been also exhibiting disorganized behavior, dressing in odd pattern hoarding behavior . refusing help to clean and becoming irritable if they offer to help help her, delusions of parasitosis , believing she has parasites in her skin and continuously picking on her skin on day of evaluation pt was tearful, angry irritable and expressed suicidal ideation stating she would rather not be alive, mobile crisis was called and pt was brought to ER Consultations:: List each consultation separately and include: 1. Reason for request. 2. Findings. 3. Follow-up Consultations: Medicine consult Neurology consult: Mrs. Enriquez is a 67-year-old woman who is currently admitted to [facility] for depression, psychosis and complains of bilateral upper extremity tingling, shooting pain and burning. MRI of the cervical spine was done and showed C4/5 mild to moderate spinal stenosis and foraminal stenosis. Will start neurontin 300 mg BID and recommend physical therapy. Continue supportive care and follow up with outpatient. Summary of Hospital Course include:: 1. Description of specific treatment plan utilized for patients during their course of treatmen. 2. Summarize the time- course for resolution of acute symptoms and/or regressed behaviors. 3. Describe issues identified and worked on during hospitalization. 4. Describe medication utilized. 5. Describe medical problems identified and treated. 6. Reassessment of suicide risk Summary of Hospital Course: Patient was admitted to the geriatric psychiatry unit. Individual and group therapy were provided. Patient was started on Lexapro and Risperdal but she refused to take psychotropic medications because she does not believe she has any mental illness. She was seen by neurology consult who recommended starting Neurontin, which patient agreed to take. She submitted a 48 hour letter requesting discharge, was screened for involuntary commitment and not accepted. She will be discharged AMA. Psychoeducation provided to patient's family. - Diagnosis (1) Major depressive disorder with psychotic features Current Visit: Yes Status: Acute (2) Hoarding disorder Current Visit: Yes Status: Acute - Final Diagnosis (DSM 5) Condition upon Discharge: STABLE DSM 5: Major Depressive Disorder w/ Psychotic Features; Hoarding Disorder Disposition: AGAINST MEDICAL ADVICE Follow-up Treatment Plan: -Patient refusing all psychotropic medications at this time (offered Lexapro and Risperdal) -Medicine consult appreciated -Neurology consult appreciated -Individual and group therapy -Psychoeducation -SW discussed case w/ family -Discharge AMA; patient does not meet criteria for involuntary commitment at this time Prescriptions/Medication Reconciliation: Gabapentin [Neurontin] 300 mg PO BID #60 cap - Smoking Cessation Smoking Cessation Medication prescribed: No Reason for not providing: Not indicated - Antipsychotic Medications Pt discharged on 2 or more routine antipsychotic medications: No
[2017-10-02] MEDS: Multivitamin With Minerals Tab PO SCH (08:50)
[2017-10-02 15:36] VITALS: BP 128/70; PULSE 71; RESP 19; TEMP 97.1
== END 2017-10-02 16:30 | disposition left against medical advice (07) | DRG 885 ==
LOC: H.ER 13:50 → H.ERHOLD 19:38 → H.STEP 20:26
PROVIDERS: ADMIT Psychiatry & Neurology Psychiatry; ATTEND Psychiatry & Neurology Psychiatry
PROC: GZHZZZZ Group Psychotherapy (ICD-10-PCS; principal; 2017-09-26)
PROC: GZ56ZZZ Individual Psychotherapy, Supportive (ICD-10-PCS; 2017-09-26)
DX: F32.3 Major depressive disorder, single episode, severe with psychotic features (principal); R45.851 Suicidal ideations; F42.3 Hoarding disorder; G47.00 Insomnia, unspecified; M48.02 Spinal stenosis, cervical region; M54.10 Radiculopathy, site unspecified